=== PATIENT | female | born 1990 | race Hispanic/Latino ===

== ENCOUNTER 2021-09-10 10:49 | Emergency (ER) | payer OTHER ==
[~2021-09-10] VITALS: Ht 154.9 cm; Wt 64.6 kg
--- OUTSIDE RECORDS SUMMARY | 2021-09-10 11:52 | CCD ---
Author Author [facility] Address Unknown Phone Unavailable Support Name Relationship Address Phone UE Next Of Kin Unknown Unavailable ARIEL NATARAJAN Next Of Kin [id number] [place], [place] [id number] Re-disclosure Warning The records that you are about to access may contain information from federally-assisted alcohol or drug abuse programs. If such information is present, then the following federally mandated warning applies: This information has been disclosed to you from records protected by federal confidentiality rules (42 CFR part 2). The federal rules prohibit you from making any further disclosure of this information unless further disclosure is expressly permitted by the written consent of the person to whom it pertains or as otherwise permitted by 42 CFR part 2. A general authorization for the release of medical or other information is NOT sufficient for this purpose. The Federal rules restrict any use of the information to criminally investigate or prosecute any alcohol or drug abuse patient.The records that you are about to access may contain highly sensitive health information, the redisclosure of which is protected by Article 27-F of the [facility] Public Health law. If you continue you may have access to information: Regarding HIV / AIDS; Provided by facilities licensed or operated by the [facility] Office of Mental Health; or Provided by the [facility] Office for People With Developmental Disabilities. If such information is present, then the following [facility] mandated warning applies: This information has been disclosed to you from confidential records which are protected by state law. State law prohibits you from making any further disclosure of this information without the specific written consent of the person to whom it pertains, or as otherwise permitted by law. Any unauthorized further disclosure in violation of state law may result in a fine or senior care sentence or both. A general authorization for the release of medical or other information is NOT sufficient authorization for further disc losure. Medications No Information Insurance Providers Payer name Policy type / Coverage type Policy ID Covered libertarian ID Covered libertarian's relationship to olsen Policy Olsen Plan Information [facility] [id number] [facility] [id number] Problems, Conditions, and Diagnoses No Information Surgeries/Procedures No Information Results No Information Social History No Information
[2021-09-10] MEDS ORDERED: predniSONE 20 MG TAB PO ONE (12:00)
[2021-09-10] MEDS ORDERED: diphenhydrAMINE 25MG CAP PO ONE (12:00)
[2021-09-10] MEDS ORDERED: PRED20TA PO (13:22)
[2021-09-10 13:38] VITALS: BP 115/71
== END 2021-09-10 13:39 | disposition home or self-care (01) ==
LOC: M ED 10:49
DX: H01.00A Unspecified blepharitis right eye, upper and lower eyelids (principal); H01.00B Unspecified blepharitis left eye, upper and lower eyelids; T78.40XA Allergy, unspecified, initial encounter
CPT/HCPCS: 99283; J7512

== ENCOUNTER 2022-08-05 17:46 | Emergency (ER) | payer OTHER ==
[~2022-08-05] VITALS: Ht 157.5 cm; Wt 63.9 kg
[~2022-08-05 17:46] MED LIST: FLUO20CA22 PO; OSEL75CA PO; PRED20TA PO; VITA100093 PO
[2022-08-05 17:48] VITALS: BP 123/79
[2022-08-05] MEDS ORDERED: CEPHALEXIN 500 MG CAP PO ONE (18:45)
[2022-08-05] MEDS ORDERED: CEPH500C PO (18:47)
== END 2022-08-05 19:19 | disposition home or self-care (01) ==
LOC: M ED 17:46
DX: L03.032 Cellulitis of left toe (principal); Z79.899 Other long term (current) drug therapy

== ENCOUNTER 2022-08-18 14:43 | Emergency (ER) | payer OTHER ==
[~2022-08-18] VITALS: Ht 157.5 cm; Wt 65.4 kg
[~2022-08-18 14:43] MED LIST changes: +CEPH500C PO
[2022-08-18] MEDS ORDERED: DOXY100T PO (19:37)
[2022-08-18] MEDS ORDERED: DOXY-443 PO (20:38)
[2022-08-18 20:57] VITALS: BP 117/61
== END 2022-08-18 20:58 | disposition home or self-care (01) ==
LOC: M ED 14:43
DX: L03.032 Cellulitis of left toe (principal); F32.A Depression, unspecified; F41.9 Anxiety disorder, unspecified

== ENCOUNTER 2022-10-26 11:04 | Emergency (ER) | payer OTHER ==
[~2022-10-26] VITALS: Ht 160 cm; Wt 69.1 kg
[~2022-10-26 11:04] MED LIST changes: +DOXY-443 PO; +DOXY100T PO
[2022-10-26] MEDS ORDERED: BUPR150T12 (11:30)
[2022-10-26] MEDS ORDERED: VENL150C43 (11:30)
[2022-10-26] MEDS ORDERED: buPROPion 75 MG TAB PO STA (13:42)
[2022-10-26] MEDS ORDERED: VENLAFAXINE 37.5 MG TAB PO ONE (13:45)
[2022-10-26] MEDS ORDERED: ONDANSETRON 4MG ORAL DISINTEGRATING TAB PO ONE (13:45)
[2022-10-26 13:49] VITALS: BP 113/64
[2022-10-26] MEDS ORDERED: VENLAFAXINE **XR** 75MG CAPSULE PO STA (14:02)
[2022-10-26] MEDS ORDERED: buPROPion **XL** TABLET 150MG (WELLBUTRIN XL) PO STA (14:02)
[2022-10-26] MEDS ORDERED: BUPR150T12 PO (14:29)
[2022-10-26] MEDS ORDERED: EFFE150C2 PO (14:29)
== END 2022-10-26 14:43 | disposition home or self-care (01) ==
LOC: M ED 11:04
DX: F19.939 Other psychoactive substance use, unspecified with withdrawal, unspecified (principal); F41.9 Anxiety disorder, unspecified; F32.9 Major depressive disorder, single episode, unspecified

== ENCOUNTER 2022-11-22 12:55 | Emergency (ER) | payer OTHER ==
[~2022-11-22] VITALS: Ht 157.5 cm; Wt 69.0 kg
[~2022-11-22 12:55] MED LIST changes: +BUPR150T12; +BUPR150T12 PO; +EFFE150C2 PO; +VENL150C43
[2022-11-22] MEDS ORDERED: BENZONATATE 100MG CAPSULE PO ONE (16:40)
[2022-11-22] MEDS ORDERED: KETOROLAC 60MG 2ML VIAL IM ONE (16:40)
[2022-11-22] MEDS ORDERED: LIDOCAINE 5% (LIDODERM) PATCH TD ONE (16:40)
[2022-11-22 17:19] LABS: BASO # 0.1 10^3/uL (0.0-0.2); BASO % 0.8 % (0.0-1.0); EOS # 0.1 10^3/uL (0.0-0.5); EOS % 0.8 % (0.0-3.0); HEMATOCRIT 42.9 % (36.0-47.0); HEMOGLOBIN 14.4 g/dl (12.0-15.5); LYMPH # 1.7 10^3/uL (1.5-5.0); LYMPH % 21.5 % (24.0-44.0); MEAN CORPUSCULAR HEMOGLOBIN 27.6 pg (27.0-33.0); MEAN CORPUSCULAR HGB CONC 33.6 g/dl (32.0-36.5); MEAN CORPUSCULAR VOLUME 82.3 fl (80.0-96.0); MONO # 0.4 10^3/uL (0.0-0.8); MONO % 4.9 % (2.0-8.0); NEUTROPHILS # 5.7 10^3/uL (1.5-8.5); NEUTROPHILS % 71.6 % (36.0-66.0); PLATELET COUNT, AUTOMATED 286 10^3/uL (150-450); RED BLOOD COUNT 5.21 10^6/uL (4.00-5.40)
[2022-11-22] MEDS ORDERED: ISOVUE-370 76% 100ML VIAL As Ordered ONE (18:21)
[2022-11-22 18:56] VITALS: BP 131/81
[2022-11-22] MEDS ORDERED: BENZ200C70 PO (19:43)
[2022-11-22] MEDS ORDERED: PROA1AER2 INH (19:43)
[2022-11-22] MEDS ORDERED: PSEU120T19 PO (19:43)
[2022-11-22] MEDS ORDERED: ASPE4PAD TOP (19:43)
[2022-11-22] MEDS ORDERED: EFFE150C2 PO (19:58)
[2022-11-22] MEDS ORDERED: BUPR-71 PO (19:58)
== END 2022-11-22 20:05 | disposition home or self-care (01) ==
LOC: M ED 12:55
DX: R05.9 Cough, unspecified (principal); R07.89 Other chest pain; F41.9 Anxiety disorder, unspecified; Z79.899 Other long term (current) drug therapy
CPT/HCPCS: 71046; 71275; 80047; 85025; 85379; 87428; 93005; 96372; 99284; J1885

== ENCOUNTER 2023-09-11 17:38 | Emergency (ER) | payer OTHER ==
[~2023-09-11] VITALS: Ht 157.5 cm; Wt 68.2 kg
[~2023-09-11 17:38] MED LIST changes: +ASPE4PAD TOP; +BENZ200C70 PO; +BUPR-71 PO; +PROA1AER2 INH; +PSEU120T19 PO
[2023-09-11] MEDS ORDERED: LAMO25TA4 (17:59)
[2023-09-11] MEDS ORDERED: PERCOCET 5MG/325MG TAB PO ONE (19:20)
[2023-09-11] MEDS ORDERED: KETO10TAB PO (19:23)
[2023-09-11] MEDS ORDERED: PERC5TAB12 PO (19:23)
[2023-09-11 19:37] VITALS: BP 122/72; TEMP 98; O2SAT 99
== END 2023-09-11 19:38 | disposition home or self-care (01) ==
LOC: M ED 17:38 → EDBD 17:38 → M ED 19:38
DX: S30.0XXA Contusion of lower back and pelvis, initial encounter (principal); M54.41 Lumbago with sciatica, right side; W10.8XXA Fall (on) (from) other stairs and steps, initial encounter; Y92.009 Unspecified place in unspecified non-institutional (private) residence as the place of occurrence of the external cause; F41.9 Anxiety disorder, unspecified; F32.9 Major depressive disorder, single episode, unspecified; Z79.899 Other long term (current) drug therapy

== ENCOUNTER 2024-03-17 10:28 | Emergency (ER) | payer OTHER ==
[~2024-03-17] VITALS: Ht 157.5 cm; Wt 101.9 kg
[~2024-03-17 10:28] MED LIST changes: -EFFE150C2 PO; +EFFE150C3 PO; +KETO10TAB PO; +LAMO25TA4; +PERC5TAB12 PO
[2024-03-17] MEDS: ONDANSETRON 4MG ORAL DISINTEGRATING TAB PO ONE (10:53)
[2024-03-17 11:36] LABS: RSV AMPLIFICATION NEGATIVE (NEGATIVE)
[2024-03-17] MEDS: ACETAMINOPHEN 325 MG TAB PO ONE (11:39)
[2024-03-17] MEDS ORDERED: OSEL75CA PO (13:50)
[2024-03-17] MEDS ORDERED: ONDA4TAB6 PO (13:50)
[2024-03-17 13:58] VITALS: BP 109/60; TEMP 99.3; O2SAT 100
== END 2024-03-17 13:59 | disposition home or self-care (01) ==
LOC: M ED 10:28
DX: J09.X2 Influenza due to identified novel influenza A virus with other respiratory manifestations (principal); B34.9 Viral infection, unspecified; Z79.899 Other long term (current) drug therapy; Z88.5 Allergy status to narcotic agent